=== PATIENT | female | born 1980 | race Hispanic/Latino ===

== ENCOUNTER 2018-04-21 17:29 | Emergency (ER) | payer BC ==
[2018-04-21] MEDS ORDERED: Sodium Chloride 0.9% 1,000 ML IV STA (18:28)
[2018-04-21 19:07] LABS: BASO # 0.1 K/uL (0.0-0.2); BASO % 0.5 % (0.0-2.0); EOS % 0.1 % (0.0-4.0); LYMPH # 0.9 K/uL (1.0-4.3); LYMPH % 8.5 % (20.0-40.0); MEAN CORPUSCULAR HEMOGLOBIN 29.4 pg (27.0-31.0); MEAN CORPUSCULAR HGB CONC 33.4 g/dL (33.0-37.0); MEAN PLATELET VOLUME 7.5 fl (7.2-11.7); MONO # 0.6 K/uL (0.0-0.8); MONO % 5.2 % (0.0-10.0); NEUT # 9.3 K/uL (1.8-7.0); NEUT % 85.7 % (50.0-75.0); PLATELET COUNT 457 K/uL (130-400); RBC 4.07 Mil/uL (3.80-5.20); WHITE BLOOD COUNT 10.9 K/uL (4.8-10.8)
--- NOTE | 2018-04-21 19:13 | ED PDOC ---
HPI: CCC, URI, Sore Throat Time Seen by Provider: 04/21/18 17:53 Chief Complaint (Nursing): Fever Chief Complaint (Provider): Cough/URI History Per: Patient History/Exam Limitations: no limitations Onset/Duration Of Symptoms: Other (x3 weeks) Current Symptoms Are (Timing): Still Present Associated Symptoms: Fever, Chills, Cough. denies: Diarrhea Additional Complaint(s): 37 year old female, with no chronic illnesses, presents to the ED complaining of cough and URI for the last 3 weeks. Patient reports having intermittent fever associated with runny nose and loss of voice. Symptoms recurred yesterday associated with nonproductive cough. Patient took Dayquil earlier today with minimal relief. She reports having body aches, chills, and an episode of nonbloody, nonbilious vomit. Denies diarrhea. PMD: none Past Medical History Reviewed: Historical Data, Nursing Documentation, Vital Signs Vital Signs: Last Vital Signs Temp 102 F H 04/21/18 18:49 Pulse 111 H 04/21/18 17:34 Resp 20 04/21/18 17:34 BP 145/90 04/21/18 17:34 Pulse Ox 97 04/21/18 17:34 - Medical History PMH: No Chronic Diseases - Surgical History Other surgeries: Breast augmentation - Family History Family History: States: No Known Family Hx - Social History Current smoker - smoking cessation education provided: No Alcohol: Occasional Drugs: Cocaine - Home Medications Home Medications: Ambulatory Orders Medication Instructions Recorded RX: Azithromycin [Zithromax] 250 mg PO DAILY #6 dose 04/21/18 RX: Prednisone 50 mg PO DAILY #4 tablet 04/21/18 RX: Promethazine DM [Phenergan DM 10 ml PO HS PRN #120 ml 04/21/18 Syrup] - Allergies Allergies/Adverse Reactions: Allergies Allergy/AdvReac Type Severity Reaction Status Date / Time No Known Allergies Allergy Verified 04/21/18 17:34 Review of Systems ROS Statement: Except As Marked, All Systems Reviewed And Found Negative Constitutional: Positive for: Fever, Chills, Other (Body aches) ENT: Positive for: Nose Discharge, Other (Loss of voice) Respiratory: Positive for: Cough Gastrointestinal: Positive for: Vomiting (x1). Negative for: Diarrhea Physical Exam - Reviewed Nursing Documentation Reviewed: Yes Vital Signs Reviewed: Yes - Physical Exam Appears: Positive for: No Acute Distress (tired appearing) Head Exam: Positive for: ATRAUMATIC, NORMOCEPHALIC Skin: Positive for: Warm, Dry Eye Exam: Positive for: EOMI, PERRL ENT: Positive for: Pharynx Is (clear with no exudates or erythema), Other (Has hoarse voice) Neck: Positive for: Painless ROM, Supple Cardiovascular/Chest: Positive for: Regular Rate, Rhythm, Tachycardia. Negative for: Murmur Respiratory: Positive for: Normal Breath Sounds (lungs clear to auscultation bilaterally). Negative for: Rales, Wheezing, Respiratory Distress Gastrointestinal/Abdominal: Positive for: Soft. Negative for: Tenderness Back: Positive for: Normal Inspection. Negative for: Decreased ROM Extremity: Positive for: Normal ROM. Negative for: Deformity Lymphatic: Negative for: Adenopathy Neurologic/Psych: Positive for: Alert. Negative for: Motor/Sensory Deficits - Laboratory Results Result Diagrams: 04/21/18 18:50 04/21/18 18:50 - ECG O2 Sat by Pulse Oximetry: 97 (RA) Pulse Ox Interpretation: Normal Medical Decision Making Medical Decision Making: Initial Impression: URI and fever Differential includes but not limited to pneumonia, bronchitis, flu, viral illness, laryngitis Initial Plan: --CMP --Lact acid stat --ED urine --CBC --Chest X-ray --Ibuprofen 600mg PO --Sodium chloride 1000mL IV --Methylprednisolone 125mg IV --Tylenol 975mg PO --Blood culture --Influenza A B stat -------- --------- Scribe Attestation: Documented by Chacho Orellana acting as a scribe for Yamilex Huerta MD. Provider Scribe Attestation: All medical record entries made by the Scribe were at my direction and personally dictated by me. I have reviewed the chart and agree that the record accurately reflects my personal performance of the history, physical exam, medical decision making, and the department course for this patient. I have also personally directed, reviewed, and agree with the discharge instructions and disposition. Disposition - Clinical Impression Clinical Impression: Laryngitis, Bronchitis Counseled Patient/Family Regarding: Studies Performed, Diagnosis, Need For Followup, Rx Given - Disposition Referrals: [facility] [Outside] - 04/24/18 (FOLLOW UP WITH YOUR DOCTOR OR [facility] IN 2-3 DAYS FOR REEVALUATION) Disposition: Routine/Home Disposition Time: 20:00 Condition: IMPROVED Additional Instructions: DRINK PLENTY OF HYDRATING FLUIDS AND REST TAKE MEDICATIONS PRESCRIBED TAKE TYLENOL AND/OR MOTRIN FOR FEVER RETURN TO ER FOR WORSENING SYMPTOMS Prescriptions: RX: Azithromycin [Zithromax] 250 mg PO DAILY #6 dose RX: Prednisone 50 mg PO DAILY #4 tablet RX: Promethazine DM [Phenergan DM Syrup] 10 ml PO HS PRN #120 ml PRN Reason: TAKE AT NIGHT FOR SEVERE COUGH Instructions: Acute Bronchitis, Adult (DC), Laryngitis (DC) Forms: [facility] ED School/Work Excuse
[2018-04-21 19:16] LABS: ALBUMIN 4.1 g/dL (3.5-5.0); ALT/SGPT 37 U/L (9-52); AST/SGOT 23 U/L (14-36); BLOOD UREA NITROGEN 11 mg/dl (7-17); CALCIUM 9.1 mg/dL (8.4-10.2); GFR NON-AFRICAN AMERICAN 56
[2018-04-21 20:01] VITALS: PULSE 88; RESP 17; TEMP 99.8
[2018-04-21 20:04] VITALS: BP 109/64
[2018-04-21 20:28] VITALS: O2SAT 97
[2018-04-21 21:52] LABS: LYMPHOCYTE 13 % (20-50); MONOCYTE 7 % (0-10); NEUTROPHIL 80 % (42-75); TOTAL CELLS COUNTED 100
[2018-04-21 21:53] LABS: ANISOCYTOSIS SLIGHT; HYPOCHROMIC SLIGHT; PLATELET ESTIMATE SLIGHTLY INCREASED (NORMAL)
--- NOTE | 2018-04-22 07:47 | RAD ---
Date of service: 04/21/2018 HISTORY: COUGH FEVER COMPARISON: No prior. TECHNIQUE: Chest PA and lateral FINDINGS: LUNGS: No active pulmonary disease. PLEURA: No significant pleural effusion identified. No pneumothorax apparent. CARDIOVASCULAR: No aortic atherosclerotic calcification present. Normal cardiac size. No pulmonary vascular congestion. OSSEOUS STRUCTURES: No significant abnormalities. VISUALIZED UPPER ABDOMEN: Normal. OTHER FINDINGS: None. IMPRESSION: No active disease.
== END 2018-04-21 20:52 | disposition home or self-care (01) ==
LOC: H.ER 17:29
DX: J40 Bronchitis, not specified as acute or chronic (principal); J04.0 Acute laryngitis
CPT/HCPCS: 71046; 80053; 81025; 83605; 85025; 87040; 87804; 96361; 96374; 99285; J2930; J7030